=== PATIENT | male | born 1965 | race Caucasian/White ===

== ENCOUNTER 2024-10-28 11:27 | Emergency (ER) | payer SELFPAY ==
[2024-10-28 11:30] VITALS: BP 145/103; PULSE 115; RESP 18; TEMP 36.7; O2SAT 97; BMI 24.6
--- NOTE | 2024-10-28 11:41 | ECG_ITS ---
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 Measurements Intervals [place] Rate: 99 P: 64 [place]: 131 QRS: 60 QRSD: 87 T: 56 QT: 326 QTc: 420 Interpretive Statements SINUS RHYTHM No previous ECG available for comparison Electronically Signed On 10-28-2024 16:58:08 CDT by Cee Dumont M.D. [email or web address]
[2024-10-28 12:11] LABS: Hematocrit 50.8 % (37-53); Hemoglobin 17.20 g/dL (11.27-16.99); Mean Corpuscular HGB Conc 33.9 g/dL (30-55); Mean Corpuscular Hemoglobin 32.5 pg (27-33); Mean Corpuscular Volume 96.0 fl (82-101); Nucleated Red Blood Cells % 0 %; Platelet Count 266 10^3/cmm (157-399); Red Blood Count 5.29 10^6/uL (3.85-5.65); White Blood Count 7.01 10^3/uL (3.29-11.43)
--- NOTE | 2024-10-28 12:26 | XRR_ITS ---
PROCEDURE INFORMATION: Exam: XR Chest Exam date and time: 10/28/2024 12:34 PM Age: 59 years old Clinical indication: Pain; Angina pectoris; Additional info: Cp TECHNIQUE: Imaging protocol: Radiologic exam of the chest. Views: 1 view. COMPARISON: No relevant prior studies available. FINDINGS: Lungs: No focal consolidation. Scattered tiny calcified granulomas. Pleural spaces: No pleural effusion. No pneumothorax. Heart/Mediastinum: No cardiomegaly. Bones/joints: Partially imaged cervical spine fusion instrumentation. XR/XR chest 1V portable [id number] IMPRESSION: No acute pulmonary process.
[2024-10-28 12:27] LABS: Troponin(5th) Baseline < 6 ng/L (0-15)
[2024-10-28 12:31] LABS: Alanine Aminotransferase 58 U/L (0-41); Albumin Level 4.8 g/dL (3.5-5.2); Alkaline Phosphatase 72 U/L (40-130); Anion Gap 16.8 (5-19); Aspartate Amino Transferase 40 U/L (0-40); Blood Urea Nitrogen 20 mg/dL (6-20); Calcium 10.5 mg/dL (8.5-10.5); Carbon Dioxide 28 mmol/L (22-29); Chloride 97 mmol/L (98-107); Creatinine Clr Calc Pharmacy 90.2149; Globulin 3.4 g/dL (1.3-4.6); Glucose 89 mg/dL (65-115); Lipase 41 U/L (13-60); Osmolality Calculated 286 mOsm/kg (285-295); Potassium 4.8 mmol/L (3.5-5.1); Sodium 137 mmol/L (136-145); Total Protein 8.2 g/dL (6.6-8.7)
--- NOTE | 2024-10-28 12:32 | CT_ITS ---
WS: [id number] CT CHEST ANGIOGRAPHY WITH REFORMATS HISTORY: cp TECHNIQUE: Contiguous axial images are obtained through the chest during arterial injection of intravenous contrast. Images are reconstructed to evaluate the pulmonary arteries. MIP imaging also reviewed. All CT scans at [facility] use at least one of these dose optimization techniques: automated exposure control; mA and/or kV adjustment per patient size (includes targeted exams where dose is matched to clinical indication); or iterative reconstruction. CONTRAST: Omnipaque 350; 100 mL IV. DLP: 332.77 mGy.cm COMPARISON: None available. Good opacification of the pulmonary arteries. No central pulmonary embolism. No emboli or filling defects noted within the segmental or central subsegmental branches. Normal size pulmonary artery. Mildly ectatic atherosclerotic aorta. No aneurysm. No RIGHT heart strain. No pericardial or pleural effusions. Lungs are clear. No pulmonary mass or nodules. No mediastinal or hilar adenopathy. Liver as visualized with hepatic steatosis. No adrenal mass. Mild degenerative changes in the thoracic spine. No bone destruction. Cervical fusion hardware. CT/CT angio chest PE protcl [id number] IMPRESSION: 1. No pulmonary embolism. 2. No pneumonia. 3. No mediastinal or hilar adenopathy.
[2024-10-28 12:33] VITALS: BP 161/104; PULSE 93; RESP 18
--- NOTE | 2024-10-28 12:33 | ED_ITS ---
HPI - Chest Pain 2 General: Chief Complaint: Chest Pain Stated Complaint: dr mir, chest pain, sob, Time Seen by Provider: 10/28/24 12:21 Source: patient Mode of arrival: ambulatory Limitations: no limitations History of Present Illness: 59-year-old male who states that he has been having chest pains been going on for 2 to 3 months. He states the pain is worsened over the last 3 to 4 days. States it is a sharp pain and is much worse with deep inspiration. He states he has a chronic cough denies any fevers denies any vomiting or diarrhea denies any abdominal pain. Associated symptoms: Deny abdominal pain, dyspnea, fever(s), nausea or vomiting Related Data Previous Rx's ?Medication ?Instructions ?Recorded naproxen 500 mg tablet (Naprosyn) 500 mg PO BID PRN pa in #20 tabs 10/28/24 Allergies Allergy/AdvReac Type Severity Reaction Status Date / Time codeine Allergy ADR-Agitate Verified 10/28/24 11:36 d Review of Systems 2 Const: Denies: fever(s), chills, body aches or change in appetite ENMT: Denies: throat pain or dental pain Card: Denies: chest pain Resp: Denies: dyspnea GI: Denies: abdominal pain, nausea, vomiting or diarrhea Musc: Denies: neck pain or back pain Skin/Breast: Denies: rash Neuro: Denies: headache(s) Physical Exam 2 Const: COMMON NORMALS: no acute distress, patient oriented x3 and healthy appearing HENMT: COMMON NORMALS: normocephalic and atraumatic HEAD & SCALP: n ormocephalic and atraumatic Eye: COMMON NORMALS: conjunctivae normal CONJUNCTIVA: Yes conjunctivae normal Neck/C-Spine: COMMON NORMALS: full ROM and supple Chest: COMMONS NORMALS: normal inspection of the chest Resp: COMMON NORMALS: normal respiratory effort, No retractions, No use of accessory muscles and clear to auscultation bilaterally AUSCULTATION: clear to auscultation bilaterally Cardio: COMMON NORMALS: regular rate, regular rhythm and No murmurs present (Cardio) RATE: regular rate RHYTHM: regular rhythm Extremity: COMMON NORMALS: normal to inspection and full ROM Neuro: COMMON NORMALS: patient oriented x3, moves all extremities and no focal motor deficits Psych: COMMON NORMALS: mental status grossly normal, Normal thought process present and cooperative THOUGHT PROCESS: Normal thought process present Skin: COMMON NORMALS: no rashes or lesions noted and no wounds GENERAL SKIN EXAM: no rashes or lesions noted Course 2 Vital Signs: Vital signs: Vital Signs Temperature 98.0 F 10/28/24 11:30 Pulse Rate 93 10/28/24 12:33 Respiratory Rate 18 10/28/24 12:33 Blood Pressure 161/104 10/28/24 12:33 Pulse Oximetry 97 10/28/24 11:30 Oxygen Delivery Me thod Room Air 10/28/24 11:30 MDM - Chest Pain Medical Decision Making Patient presents here with chest pains atypical in nature and has been going on for months CTA here is normal troponins normal he stable for discharge follow-up with PCP return if worsening. Medical Records I reviewed the patient's medical records. Lab Data I reviewed the patient's lab results. 10/28/24 12:06 10/28/24 12:06 Radiology Impressions Chest CTA 10/28/24 12:32 IMPRESSION: 1. No pulmonary embolism. 2. No pneumonia. 3. No mediastinal or hilar adenopathy. Laboratory Results WBC 7.01 10^3/uL (3.29-11.43) 10/28/24 12:06 RBC 5.29 10^6/uL (3.85-5.65) 10/28/24 12:06 Hgb 17.20 g/dL (11.27-16.99) H 10/28/24 12:06 Hct 50.8 % (37-53) 10/28/24 12:06 MCV 96.0 fl (82-101) 10/28/24 12:06 MCH 32.5 pg (27-33) 10/28/24 12:06 MCHC 33.9 g/dL (30-55) 10/28/24 12:06 RDW 12.5 % (12.1-15.1) 10/28/24 12:06 Plt Count 266 10^3/cmm (157-399) 10/28/24 12:06 MPV 9.5 fL (7.4-10.4) 10/28/24 12:06 Neut % (Auto) 57.3 % 10/28/24 12:06 Lymph % (Auto) 25.7 % 10/28/24 12:06 [place] % (Auto) 11.0 % 10/28/24 12:06 Eos % (Auto) 4.0 % 10/28/24 12:06 Baso % (Auto) 1.6 % 10/28/24 12:06 Neut # (Auto) 4.02 10^3/uL (1.8-7.7) 10/28/24 12:06 Lymph # (Auto) 1.8 10^3/uL (0.8-4.8) 10/28/24 12:06 [place] # (Auto) 0.8 10^3/uL (0.2-0.9) 10/28/24 12:06 Eos # (Auto) 0.3 10^3/uL (0.0-0.8) 10/28/24 12:06 Baso # (Auto) 0.1 10^3/uL (0.0-0.1) 10/28/24 12:06 Nucleated RBC % (auto) 0 % 10/28/24 12:06 Nucleated RBCs # 0.0 /100WBC 10/28/24 12:06 Sodium 137 mmol/L (136-145) 10/28/24 12:06 Potassium 4.8 mmol/L (3.5-5.1) 10/28/24 12:06 Chloride 97 mmol/L (98-107) L 10/28/24 12:06 Carbon Dioxide 28 mmol/L (22-29) 10/28/24 12:06 Anion Gap 16.8 (5-19) 10/28/24 12:06 BUN 20 mg/dL (6-20) 10/28/24 12:06 Creatinine 0.9 mg/dL (0.7-1.2) 10/28/24 12:06 GFR Calculation 87.0 mL/min (90-130) L 10/28/24 12:06 Glucose 89 mg/dL (65-115) 10/28/24 12:06 Calculated Osmolality 286 mOsm/kg (285-295) 10/28/24 12:06 Calcium 10.5 mg/dL (8.5-10.5) 10/28/24 12:06 Total Bilirubin 0.4 mg/dL (0.15-1.2) 10/28/24 12:06 AST 40 U/L (0-40) 10/28/24 12:06 ALT 58 U/L (0-41) H 10/28/24 12:06 Alkaline Phosphatase 72 U/L (40-130) 10/28/24 12:06 Troponin T Baseline < 6 ng/L (0-15) 10/28/24 12:06 Total Protein 8.2 g/dL (6.6-8.7) 10/28/24 12:06 Albumin 4.8 g/dL (3.5-5.2) 10/28/24 12:06 Globulin 3.4 g/dL (1.3-4.6) 10/28/24 12:06 Lipase 41 U/L (13-60) 10/28/24 12:06 All radiology interpretation(s) finalized by discharge Discharge Plan Discharge Patient Disposition: Home Clinical Impression: Chest pain Condition: Stable Prescriptions: New naproxen [Naprosyn] 500 mg tablet 500 mg PO BID PRN (Reason: pain) Qty: 20 0RF Discharge Orders: Discharge ED (Routine); Ordered 10/28/24 Ordered By: Hannah Woodall Discharge Diet: Advance as tolerated Discharge Activity: Resume usual activity Patient Instructions: Chest Pain (ED) Print Language: Kazakh Coding Level of Care Code ED [employer] Teacher for Ophelia Linda
[2024-10-28] MEDS: iohexol 350 mg/mL 500 mL Btl (per mL) IV (12:56)
--- NOTE | 2024-10-28 13:59 | ECG_ITS ---
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 Measurements Intervals [place] Rate: 82 P: 10 MD: 145 QRS: 49 QRSD: 79 T: 58 QT: 346 QTc: 406 Interpretive Statements SINUS RHYTHM POSSIBLE RIGHT VENTRICULAR CONDUCTION DELAY [RSR (QR) IN V1/V2] MINIMAL ST DEPRESSION [0.025+ mV ST DEPRESSION] Compared to ECG 10/28/2024 11:41:38 ST (T wave) deviation now present Electronically Signed On 10-28-2024 17:06:27 CDT by Cee Dumont M.D. [id number]
[2024-10-28 14:03] VITALS: BP 171/111; PULSE 76; RESP 18; O2SAT 98
== END 2024-10-28 14:04 | disposition home or self-care (01) ==
PROVIDERS: Emergency Provider Emergency Medicine
DX: R07.9 Chest pain, unspecified (principal)
CPT/HCPCS: 36415; 71045; 71275; 80053; 83690; 84484; 85025; 93005; 99285